=== PATIENT | male | born 1950 | race Two or more races ===

== ENCOUNTER 2025-02-16 06:20 | Day surgery (SDC) | payer MEDICARE, MEDICAID, SELFPAY ==
--- NOTE | 2025-02-12 12:30 | EKG_ITS ---
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 : 1950 Requested By: Christos Ellis Order Number: [id number] Reading MD: Christos Ellis Measurements Intervals [place] Rate: 99 P: 40 UT: 169 QRS: -10 QRSD: 127 T: 26 QT: 354 QTc: 455 Interpretive Statements SINUS RHYTHM WITH OCCASIONAL VENTRICULAR PREMATURE COMPLEXES RIGHT BUNDLE BRANCH BLOCK [120+ ms QRS DURATION, UPRIGHT V1, 40+ ms S IN I/aVL/V4/V5/V6] MODERATE VOLTAGE CRITERIA FOR LVH, CONSIDER NORMAL VARIANT [MEETS CRITERIA IN ONE OF: R(aVL), S(V1), R(V5), R(V5/V6)+S(V1)] POSSIBLE SEPTAL MYOCARDIAL INFARCTION , PROBABLY OLD [30 ms Q WAVE IN V1/V2] Compared to ECG 12/25/2023 09:03:27 Ventricular premature complex(es) now present Right bundle-branch block now present Myocardial infarct finding now present Incomplete right bundle-branch block no longer present ST (T wave) deviation no longer present /store/S0/[id number]/ecg/[id number].pdf
[2025-02-12 12:35] VITALS: BMI 29.2
[2025-02-12 13:23] LABS: Basophils % (Auto) 0 % (0-2.5); Eosinophils % (Auto) 0 % (0-10); Hematocrit 35.1 % (41.0-53.0); Hemoglobin 12.8 g/dL (13.5-16.0); Immature Granulocytes % (Auto) 0 % (0-0); Immature Granulocytes Auto 0.02 Thou/mm3 (0.00-0.00); Lymphocytes % (Auto) 27 % (10-50); Mean Corpuscular HGB Conc 36.5 g/dl (31.0-37.0); Mean Corpuscular Hemoglobin 33.1 pg (25.0-35.0); Mean Corpuscular Volume 91 fL (80-100); Monocytes # (Auto) 0.7 Thou/mm3 (0.0-0.8); Monocytes % (Auto) 9 % (0-12); Neutrophils # (Auto) 4.7 Thou/mm3 (1.8-7.7); Neutrophils % (Auto) 63 % (37-80); Nucleated Red Blood Cell % 0 /100 WBC (0); Platelet Count 152 Thou/mm3 (140-440); RDW Standard Deviation 43.8 fL (35.1-43.9); Red Blood Count 3.87 Miln/mm3 (4.50-5.90); White Blood Count 7.4 Thou/mm3 (3.8-10.6)
[2025-02-12 13:35] LABS: Alanine Aminotransferase 26 U/L (10-49); Albumin, Serum 4.7 gm/dL (3.4-4.8); Albumin/Globulin Ratio 1.6 (1.2-2.2); Alkaline Phosphatase 74 U/L (46-116); Anion Gap 11 (7-16); Aspartate Amino Transferase 44 U/L (0-34); BUN/Creatinine Ratio 12 Ratio (12-20); Bilirubin,Total 0.9 mg/dL (0.3-1.2); Blood Urea Nitrogen 13 mg/dL (9-23); Carbon Dioxide 22.6 mMol/L (20.0-31.0); Chloride 99 mMol/L (98-107); Creatinine (Component) 1.1 mg/dL (0.6-1.3); Estimated Creatinine Clearance 63.1 mL/min (>60); Glucose 109 mg/dL (74-106); Osmolality,Calculated 267 (275-295); Partial Thromboplastin Time 25.6 Seconds (22.0-36.0); Prothrombin Time 11.1 Seconds (9.0-12.2); Sodium 133 mMol/L (136-145); Total Protein 7.7 gm/dL (5.7-8.2); eGFR > 60 See Note
--- NOTE | 2025-02-12 16:05 | SUR.PREOP ---
Pt's sister notified to bring pt at 0600 ob Saturday for surgery.
[2025-02-16] VITALS (9 sets, daily range): BP systolic 136–163; BP diastolic 79–99; PULSE 84–99; RESP 13–20; TEMP 36.2–36.8; O2SAT 95–100; BMI 29.2
--- NOTE | 2025-02-16 09:53 | SUR.PHASEI ---
0953: Pt. AAOx4, vitals stable, breathing unlabored, no complaint of pain or nausea, dressing to lower ABD CDI, no active bleed noted, report received from MD Mello and Al MIKE.
[2025-02-16] MEDS: fentaNYL CIT INJ 50 mCg/ML AMP 2ML 25 MCG IVP ×2 (10:22→10:29)
--- NOTE | 2025-02-16 10:23 | PD.SUROPNT ---
Date of Procedure 02/16/25 Pre Op Diagnosis Symptomatic left inguinal hernia Post Op Diagnosis Same, indirect in type Procedure Repair of the left indirect inguinal hernia with 3 x 6 Marlex mesh Findings Patient was found to have a large indirect hernia which manifested as a defect in the internal ring. The inguinal floor appeared weak but not protruding to call this a direct hernia Procedure Description After the patient was brought to the operating room endotracheal anesthesia was given. Then his left groin was shaved and prepped and washed with ChloraPrep solution. Timeout was performed. I inserted a Daniels catheter because the patient had incontinent of urine and might have a distended bladder which may come into the dissection area. Stent delayed left groin incision was made after injecting half percent Marcaine for about 6 inches in length. External oblique was reached and it was opened and the cord structures were encircled protecting ilioinguinal nerve. After skeletonizing the cord structures I found that the patient had an indirect hernia which pretty much manifested like a direct hernia due to large weakness of the internal ring. This was bulging and easily admitted to her 3 fingers. On I opened up the sac after it and I found out that the bowel was inside. Then I closed the sac immediately and posted inside then I chose with 3 inches x 6 inches Marlex mesh unfolded it to double thickness and attached it medially to the pubic tubercle and inferiorly to the shelving edge of the inguinal ligament. Superiorly it was attached to the internal oblique. When the cord structures were reached the mesh was divided and tucked underneath the external oblique. 2 stitches were placed lateral to the cord structures. At the end I found out that the entire inguinal floor was well covered with the mesh. Then after checking for the bleeding points with hot packs I closed the external oblique with a 2-0 Vicryl. Subcutaneous tissue was closed with 3-0 plain and the skin was closed with 4-0 Monocryl subcuticular stitch and dressing was applied with Adaptic and 4 x 4 gauze. Patient tolerated procedure well. The Daniels catheter was removed in the OR. Anesthesia GETA Implants 3 inches x 6 inches Marlex mesh Pathology / specimen None Estimated Blood Loss 30 Condition Stable Disposition PACU Surgeon Madelyn Hoffmann MD Surgical Staff Operation Date: 02/16/25 08:00 Case Staff Anesthesiologist: Lei Mello RN First Assistant: Joan Little
[2025-02-16] MEDS: HYDROcodone/APAP 5/325 TABLET 1 TAB PO (10:50)
--- NOTE | 2025-02-16 11:00 | SUR.PHASEII ---
1100: Pt. AAOx4, vitals stable, breathing unlabored, no complaint of pain or nausea, dressing to lower ABD CDI, no active bleed noted, pt. tolerated sips of water well, pt. ambulated to wheelchair with steady gait and no assist, no complications. Gave discharge instructions to the pt. and his ride, both verbalized understanding and had no further questions. Pt. left with all personal belongings.
== END 2025-02-16 11:00 | disposition home or self-care (01) ==
PROVIDERS: PCP Family Medicine; Referring Provider Surgery; Visit Provider Surgery
PROC: (CPT 49505; principal; 2025-02-16 08:00)
DX: K40.90 Unilateral inguinal hernia, without obstruction or gangrene, not specified as recurrent (principal); Z01.810 Encounter for preprocedural cardiovascular examination
CPT/HCPCS: 49505; 36415; 80053; 85025; 85610; 85730; 93005; A4217; A4649; C1781; J0131; J0461; J1100; J2250; J2371; J2405; J2704; J3010; J3490; A9270